=== PATIENT | male | born 1935 | race Caucasian/White ===

== ENCOUNTER 2016-11-02 07:04 | Emergency (ER) | payer MEDICARE ==
[2016-11-02 07:18] VITALS: BP 130/85
--- NOTE | 2016-11-02 07:28 | UC ---
Skin Complaint HPI - HPI Summary HPI Summary: The patient comes in today for: 1. Rash between fingers: Onset: 2 days ago. Palliative/provocative: Antibiotic cream reduced the itching. Quality: Itchy Region: along the sides of the fingers of his hands. Severity: 2/10 Time: Constant. Associated symptoms: Previous disease: He thinks that he had this years ago on his feet. * - History of Current Complaint Chief Complaint: [facility] Time Seen by Provider: 11/02/16 07:21 Stated Complaint: BLISTER ON FINGER Hx Obtained From: Patient - Allergy/Home Medications Allergies/Adverse Reactions: Allergies Allergy/AdvReac Type Severity Reaction Status Date / Time No Known Allergies Allergy Verified 11/02/16 07:12 Home Medications: Home Medications Aspirin [Aspirin 81 MG TAB] 81 mg PO DAILY 11/02/16 [History Confirmed 11/02/16] Cholecalciferol [Vitamin D 400] 400 unit PO DAILY 11/02/16 [History Confirmed ] Meloxicam(NF) [Mobic(NF)] 7.5 mg PO DAILY 11/02/16 [History Confirmed 11/02/16] Metoprolol Succinate [Toprol Xl] 50 mg PO DAILY 11/02/16 [History Confirmed ] Propafenone HCl 300 mg PO DAILY 11/02/16 [History Confirmed 11/02/16] Simvastatin TAB(NF) [Zocor 20 MG (NF)] 80 mg PO DAILY 11/02/16 [History Confirmed 11/02/16] Review of Systems Constitutional: Negative Skin: Rash Eyes: Negative ENT: Negative Respiratory: Negative Cardiovascular: Negative Gastrointestinal: Negative Genitourinary: Negative All Other Systems Reviewed And Are Negative: Yes PMH/Surg Hx/FS Hx/Imm Hx Previously Healthy: No Endocrine History Of: Reports: Dyslipidemia Cardiovascular History Of: Reports: Cardiac Disorders - [place] 2008, he had two stents put in., Hypertension, Myocardial Infarction, Atrial Fibrillation - HE states that he has had a "rapid heart beat." Denies: Pacemaker/ICD, Congestive Heart Failure, Deep Vein Thrombosis, Bleeding Disorders Respiratory History Of: Denies: COPD, Asthma, Bronchitis, Pneumonia, Pulmonary Embolism GI/ History Of: Denies: Gastroesophageal Reflux, Ulcer, Gastrointestinal Bleed, Gall Bladder Disease, Kidney Stones, Diverticulitis, Renal Disease, Urosepsis Neurological History Of: Denies: TIA, CVA, Dementia, Seizures, Migraine Psychological History Of: Denies: Anxiety, Depression, Bipolar Disorder, Schizophrenia, Post Traumatic Stress Disorder Cancer History Of: Denies: Lung Cancer, Colorectal Cancer, Breast Cancer, Prostate Cancer, Cervical Cancer Other History Of: Anticoagulant Therapy - Aspirin. Negative For: HIV, Hepatitis B, Hepatitis C - Surgical History Surgical History: Yes Surgery Procedure, Year, and Place: 2 CARDIAC STENTS 2007 PT HAS CARD,HERNIA - Family History Known Family History: Negative: Cardiac Disease, Hypertension - Social History Occupation: Employed Full-time Alcohol Use: None Substance Use Type: None Smoking Status (MU): Heavy Every Day Tobacco Smoker Type: Cigarettes Amount Used/How Often: 1 pack daily Physical Exam Triage Information Reviewed: Yes Appearance: Well-Appearing, No Pain Distress, Well-Nourished Vital Signs: Initial Vital Signs Temp 98.4 F 11/02/16 07:13 Pulse 70 11/02/16 07:13 Resp 16 11/02/16 07:13 BP 130/85 11/02/16 07:13 Pulse Ox 98 11/02/16 07:13 Vital Signs Reviewed: Yes Eyes: Positive: Conjunctiva Clear. Negative: Discharge ENT: Positive: Hearing grossly normal. Negative: Pharyngeal erythema, Nasal congestion, Nasal drainage, TM bulging, TM dull, TM red, Tonsillar swelling, Tonsillar exudate Dental: Negative: Gross Decay/Caries @, Dental Fracture @ Neck: Positive: Supple, Nontender, No Lymphadenopathy. Negative: Nuchal Rigidity Respiratory: Positive: Chest non-tender, Lungs clear, No respiratory distress, No accessory muscle use Cardiovascular: Positive: RRR, No Murmur Abdomen Description: Positive: Nontender, No Organomegaly, Soft. Negative: Distended, Guarding Musculoskeletal: Positive: Strength Intact, ROM Intact, No Edema Neurological: Positive: Alert, Muscle Tone Normal Psychological: Positive: Age Appropriate Behavior, Consolable Skin: Positive: rashes - He has flesh-colored papular, cobblestone-like rash along the sides of his fingers on both hands. Course/Dx - Course Course Of Treatment: Patient was told that his rash was pompholyx and his treatment options for it. - Diagnoses Provider Diagnoses: Pompholyx of the fingers, both hands. Discharge - Discharge Plan Condition: Stable Disposition: HOME Patient Education Materials: Dyshidrotic Eczema (ED) Referrals: Leon Oden, DO [Primary Care Provider] - If Needed (Please see your primary care provider as needed. If you have any problems, be seen again at that time.)
== END 2016-11-02 07:47 | disposition home or self-care (01) ==
LOC: UCCORT 07:04
DX: L30.1 Dyshidrosis [pompholyx] (principal); E78.5 Hyperlipidemia, unspecified; I25.2 Old myocardial infarction; I10 Essential (primary) hypertension; Z95.5 Presence of coronary angioplasty implant and graft; I48.91 Unspecified atrial fibrillation; Z79.01 Long term (current) use of anticoagulants; F17.210 Nicotine dependence, cigarettes, uncomplicated
CPT/HCPCS: 99202; G0463

== ENCOUNTER 2019-03-22 17:58 | Emergency (ER) | payer MEDICARE ==
[2019-03-22 18:17] VITALS: BP 120/67
== END 2019-03-22 19:10 | disposition left against medical advice (07) ==
LOC: UCCORT 17:58
DX: M79.605 Pain in left leg (principal); M79.604 Pain in right leg; Z53.21 Procedure and treatment not carried out due to patient leaving prior to being seen by health care provider